=== PATIENT | female | born 1945 | race Caucasian/White ===

== ENCOUNTER 2016-10-24 14:47 | Emergency (ER) | payer MEDICARE, BC ==
[2016-10-24 14:55] VITALS: BP 151/75
[2016-10-24] MEDS ORDERED: Albuterol/Ipratropium 3.0-0.5 MG/3 ML Neb Soln NEB ONE (15:07)
[2016-10-24] MEDS ORDERED: Sodium Chloride 0.9% 10 ML Syringe FLUSH PRN (15:11)
[2016-10-24] MEDS ORDERED: methylPREDNISolone Sodium Succinate 125 MG/2 ML SDV IV ONE (15:12)
[2016-10-24] MEDS ORDERED: Sodium Chloride 0.9% 1,000 ML IV ONE (15:12)
[2016-10-24] MEDS ORDERED: Ketorolac 30 MG/ML SDV IVPUSH ONE (15:12)
[2016-10-24] MEDS ORDERED: Acetaminophen/HYDROcodone 325-5 MG Tab PO ONE (15:13)
[2016-10-24 15:44] LABS: CHLORIDE,CL 100 mmol/L (98-107); SODIUM,NA 138 mmol/L (136-145)
[2016-10-24] MEDS ORDERED: Take Home: Codeine/Promethazine 10-6.25 MG/5 ML Syrup 5 ML, 2 Cup Pack PO ONE (16:16)
[2016-10-24] MEDS ORDERED: Take Home: Albuterol 6.7 GM Inhaler, 1 Inhaler Pack INH ONE (16:16)
[2016-10-24] MEDS ORDERED: Take Home: Doxycycline 100 MG Tab, 4 Tab Pack PO ONE (16:16)
[2016-10-24] MEDS ORDERED: Take Home: Codeine/Promethazine 10-6.25 MG/5 ML Syrup 5 ML, 2 Cup Pack ONE (16:49)
--- NOTE | 2016-10-25 08:21 | ER ---
Date of Service: 10/24/2016 SUBJECTIVE: Ade presents to the emergency room with complaints of cough that she has been experiencing for a week. She states she has also been experiencing a runny nose, headache and body aches. She denies any fever or chills or vomiting. She has recently been experiencing some diarrhea as well. Denies any sick contacts. Again, the symptoms started approximately 1 week ago. PAST MEDICAL HISTORY: 1. Hypertension. 2. Dyslipidemia. 3. Incontinence. MEDICATIONS: 1. Oxybutynin. 2. Verapamil ER. 3. Simvastatin. 4. Potassium chloride. 5. Hydrochlorothiazide. ALLERGIES: NKDA. REVIEW OF SYSTEMS: HEENT: Positive for sinus congestion and rhinorrhea. Respiratory: Positive for cough, productive of yellowish sputum. Cardiac: Denies any substernal chest pain. No jaw, arm, neck, or back pain. GI: No nausea, vomiting, or diarrhea at this time. PHYSICAL EXAMINATION: General: This is a 70-year-old female patient. Vital Signs: Blood pressure is 151/75, pulse rate is 90, temperature is 36.9, respiratory rate is 20, O2 saturations 95%. Skin: Warm, pink, and dry. HEENT. Head is normocephalic, atraumatic. Mouth, oral mucosa is moist. No erythema or exudate noted to the patient's hypopharynx. Neck: Supple. No masses. There is no lymphadenopathy. Lungs: Diminished bilaterally with crackles and some rhonchi in the mid lung scruggs. Heart: Regular rate and rhythm. Abdomen: Soft, nontender. There is no hepatosplenomegaly or masses noted. Neurologic: She is alert and oriented. Answers all questions appropriately. DIAGNOSTIC IMAGING: PA and lateral chest x-ray was obtained. She did have evidence of some pneumonitis bilaterally near the hilum. No obvious infiltrate was noted. LABORATORY DATA: CBC was obtained and was noted to be within normal limits. Comprehensive metabolic panel was obtained and all noted to be within normal limits with the exception of a decreased potassium at 3.0. C-reactive protein was 10.8. Influenza A and B were obtained and were negative. ASSESSMENT: Pneumonitis. PLAN: The patient was started on doxycycline 100 mg twice daily for 10 days. She is also started on Phenergan with codeine 1-2 teaspoons p.o. q.6 hours as needed for cough. Also was started on prednisone 40 mg daily for the next 6 days. We will have her return to the emergency room if she develops any worsening cough or shortness of breath or other worrisome signs or symptoms. All questions were answered. MWK: 10/25/2016 04:29:30 MODL: 10/25/2016 04:49:08 /[id number]
== END 2016-10-24 16:46 | disposition home or self-care (01) ==
LOC: VM.ED 14:47
DX: J18.9 Pneumonia, unspecified organism (principal); I10 Essential (primary) hypertension; E78.5 Hyperlipidemia, unspecified
CPT/HCPCS: 36415; 71020; 80053; 85025; 86140; 87804; 94640; 96361; 96374; 96375; 99284; A9270; J1885; J2930; J7030; 99283-GF

== ENCOUNTER 2017-01-13 10:54 | Day surgery (SDC) | payer MEDICARE, BC ==
[~2017-01-13 10:54] MED LIST: Lactated Ringers 1,000 ML IV SCH
[2017-01-13] MEDS ORDERED: fentaNYL 100 MCG/2 ML SDV ONE (12:12)
[2017-01-13] MEDS ORDERED: Propofol 200 MG/20 ML SDV ONE ×4 (12:13→14:30)
[2017-01-13 14:38] VITALS: BP 132/72
--- NOTE | 2017-01-13 14:49 | OR ---
DATE OF SURGERY: 01/13/2017. REFERRING PROVIDER: Areli Cannon MD. PRE-OPERATIVE DIAGNOSES: Positive Fit stool card. The patient's last colonoscopy was 11/02/2012. She does have a history of some hyperplastic polyps. No known family history of colon cancer. POST-OPERATIVE DIAGNOSES: 1. A 4-mm polyp at 20 cm, removed with cold forceps. 2. Moderate diffuse diverticulosis throughout the colon, not acutely inflamed. 3. Mild hemorrhoids. PROCEDURE: Colonoscopy with polypectomy x1 using cold forceps. SURGEON: Rainer العراقي M.D. ANESTHESIA: Monitored anesthesia care. BOWEL PREP: Good. DESCRIPTION OF OPERATION: Joanna is a 71-year-old female. The patient was brought to the endoscopy suite after discussing risks and benefits of the procedure. Informed consent was obtained for conscious sedation and colonoscopy with or without biopsy and/or polypectomy. We also discussed possibility of missed lesions. Pre-procedure exam was unremarkable. IV, oxygen, and monitors were placed. The patient was placed in the left lateral decubitus position. Sedation was administered and a digital rectal exam performed and unremarkable. Colonoscope was passed into the rectum and slowly advanced all the way to the cecum. Cecum was viewed and photographed. The colonoscope was slowly withdrawn and the mucosa was closed observed in a direct circumferential manner. The colonoscope was slowly withdrawn. Mucosa was closely observed in a direct circumferential manner. The patient did have moderate diffuse diverticulosis throughout the entire length of the colon, most prominent in the sigmoid area. Otherwise, the ascending colon was unremarkable. Transverse colon was unremarkable. Descending colon was unremarkable. Sigmoid colon did reveal a 4- mm polyp at 20 cm, removed with cold forceps. Retroflexion was performed. Rectal mucosa was remarkable for some mild hemorrhoids. Scope was removed. The patient tolerated the procedure well. The patient was monitored until that baseline status. Discharge instructions were reviewed and the patient was discharged in good condition. COMPLICATIONS: None. TOTAL TIME: 18 minutes. ESTIMATED BLOOD LOSS: Less than 1 mL. RECOMMENDATIONS/FOLLOW-UP: We will await results of Path report to determine ideal followup interval. We will have the patient hold her aspirin for 3 days to limit any chance of bleeding. I would like to kindly thank Dr. Areli Cannon for this referral. DMB: 01/13/2017 14:00:17 MODL: 01/13/2017 14:35:26 /[id number]
== END 2017-01-13 14:59 | disposition home or self-care (01) ==
LOC: VM.SDS 10:54
PROVIDERS: ATTEND Family Medicine
DX: Z86.010 Personal history of colon polyps (principal)
CPT/HCPCS: 00810; 45380; J2704; J3010; J7120; 88305

== ENCOUNTER 2020-12-23 16:20 | Emergency (ER) | payer MEDICARE, BC ==
[2020-12-23 16:31] VITALS: BP 129/73; PULSE 102
[2020-12-23] MEDS ORDERED: Sodium Chloride 0.9% 10 ML Syringe FLUSH PRN (16:49)
[2020-12-23 17:22] LABS: CHLORIDE,CL 103 mmol/L (98-107); SODIUM,NA 141 mmol/L (136-145)
[2020-12-23] MEDS: Lactated Ringers 1,000 ML IV ONE (17:47)
[2020-12-23] MEDS: Ondansetron 4 MG/2 ML SDV IV ONE (17:47)
[2020-12-23] MEDS: Potassium Chloride 10% 20 MEQ/15 ML Soln 15 ML UD Cup PO ONE (17:48)
[2020-12-23] MEDS: Lactated Ringers 1,000 ML IV SCH (18:55)
[2020-12-23] MEDS: cefTRIAXone 1 GM Vial IVPUSH ONE (19:33)
--- NOTE | 2020-12-23 20:03 | EDM.PDOC ---
ED HPI GENERAL MEDICAL PROBLEM - General Chief Complaint: Gastrointestinal Problem Stated Complaint: NOT FEELING WELL Time Seen by Provider: 12/23/20 16:40 Source of Information: Reports: Patient History Limitations: Reports: No Limitations - History of Present Illness INITIAL COMMENTS - FREE TEXT/NARRATIVE: Patient comes emergency department today from home with complaints of nausea and vomiting diarrhea and urinary frequency. This patient for the past 2 to 3 days has had quite a few episodes of nausea vomiting and diarrhea. She has not been able to keep anything down at home. She is getting kind of weak and does not have much energy. She denies any fever or chills. No body aches malaise or fatigue. No chest pain no shortness of breath or difficulty breathing. No cough or congestion. She denies any abdominal pain other than when she is vomiting. She does complain of urinary frequency and dysuria. No hematuria. No flank pain. She has not been on antibiotics recently. She has not been exposed anyone ill. No loss of taste or smell. No cough congestion shortness of breath. She has received her Covid vaccine. Middle Epigastric Pain Score (Numeric/FACES): 1 - Related Data Allergies Allergy/AdvReac Type Severity Reaction Status Date / Time No Known Allergies Allergy Verified 12/23/20 16:34 Home Meds: Home Meds Albuterol [Ventolin HFA] 2 puff PO Q4H PRN 01/07/17 [History] Calcium Carb/Vitamin D3/Vit K1 [Calcium + Vit D & K Chew] 2 tab PO BID 01/07/17 [History] Cholecalciferol (Vitamin D3) [Vitamin D3] 2,000 unit PO DAILY 01/07/17 [History] Lactobacillus Acidophilus [Acidophilus Lactobacilli] 1 tab PO DAILY 01/07/17 [History] Nystatin [Nystatin Crm] 1 applic TOP TID 01/07/17 [History] Polyethylene Glycol 3350 [MiraLAX] 1 packet PO DAILY 01/07/17 [History] Potassium Chloride 1 tab PO DAILY 01/07/17 [History] Ranitidine HCl [Zantac] 150 mg PO DAILY 01/07/17 [History] Simvastatin [Zocor] 20 mg PO BEDTIME 01/07/17 [History] Verapamil HCl [Verapamil ER Pm] 100 mg PO BEDTIME 01/07/17 [History] hydroCHLOROthiazide [Hydrochlorothiazide] 25 g PO DAILY 01/07/17 [History] Aspirin [Halfprin] 1 tab PO DAILY 01/13/17 [History] Ondansetron [Zofran ODT] 4 mg PO Q6H PRN #12 tab.dis 12/23/20 [Rx] cephALEXin [Cephalexin] 500 mg PO QID #20 capsule 12/23/20 [Rx] Past Medical History HEENT History: Reports: Allergic Rhinitis, Other (See Below) Other HEENT History: deviated septum Cardiovascular History: Reports: High Cholesterol, Hypertension Respiratory History: Reports: Pneumonia, Recurrent Gastrointestinal History: Reports: Chronic Constipation, Colon Polyp, Diverticulosis, GERD, Other (See Below) Other Gastrointestinal History: RUQ abd. pain Genitourinary History: Reports: None FURNITURE RESTORER History: Reports: , Other (See Below) Other FURNITURE RESTORER History: intramural leiomyoma of uterus Musculoskeletal History: Reports: Arthritis Neurological History: Psychiatric History: Reports: None Endocrine/Metabolic History: Reports: Osteopenia Hematologic History: Reports: None Immunologic History: Reports: None Oncologic (Cancer) History: Reports: None Dermatologic History: Reports: None - Past Surgical History Head Surgeries/Procedures: Reports: None Cardiovascular Surgical History: Reports: Varicose GI Surgical History: Reports: Colonoscopy Female Surgical History: Reports: Tubal Ligation Endocrine Surgical History: Reports: None Neurological Surgical History: Reports: None Musculoskeletal Surgical History: Reports: None Oncologic Surgical History: Reports: Biopsy of Breast Social & Family History - Tobacco Use Tobacco Use Status *Q: Unknown Ever Used Tobacco ED ROS GENERAL - Review of Systems Review Of Systems: Comprehensive ROS is negative, except as noted in HPI. ED EXAM, GI/ABD - Physical Exam Exam: See Below Exam Limited By: No Limitations General Appearance: Alert, WD/WN, No Apparent Distress Ears: Normal External Exam Nose: Normal Inspection Throat/Mouth: Normal Inspection (Normal except for her oral mucosa is quite dry.) Head: Atraumatic, Normocephalic Neck: Normal Inspection, Supple, Non-Tender, Full Range of Motion Respiratory/Chest: No Respiratory Distress, Lungs Clear, Normal Breath Sounds, Chest Non-Tender Cardiovascular: Normal Peripheral Pulses, Regular Rate, Rhythm, Tachycardia GI/Abdominal Exam: Normal Bowel Sounds, Soft, Non-Tender, No Organomegaly, No Distention, No Abnormal Bruit, No Mass (Female) Exam: Deferred Rectal (Female) Exam: Deferred Back Exam: Normal Inspection, Full Range of Motion. No: CVA Tenderness (L), CVA Tenderness (R) Extremities: Normal Inspection, Normal Range of Motion, Non-Tender, No Pedal Edema, Normal Capillary Refill Neurological: Alert, Oriented, CN II-XII Intact, Normal Cognition, Normal Gait, No Motor/Sensory Deficits Psychiatric: Normal Affect, Normal Mood Skin Exam: Warm, Dry, Intact, Normal Color, No Rash Lymphatic: No Adenopathy Course - Vital Signs Last Recorded V/S: Last Vital Signs Temp 97.6 F 12/23/20 16:20 Pulse 102 H 12/23/20 16:20 Resp 20 12/23/20 16:20 BP 129/73 12/23/20 16:20 Pulse Ox 97 12/23/20 16:20 - Orders/Labs/Meds Labs: Laboratory Tests 12/23/20 12/23/20 12/23/20 Range/Units 17:00 17:00 19:02 WBC 7.6 (4.0-10.0) x10^3/uL RBC 4.99 (4.00-5.50) x10^6/uL Hgb 16.1 H (12.0-16.0) g/dL Hct 45.0 (33.0-47.0) % MCV 90.2 (78.0-93.0) fL MCH 32.3 H (26.0-32.0) pg MCHC 35.8 (32.0-36.0) g/dL RDW Coeff of Flaca 12.7 (10.0-15.0) % Plt Count 203 (130-400) x10^3/uL Neut % (Auto) 91.9 H (50.0-80.0) % Lymph % (Auto) 4.6 L (25.0-50.0) % [place] % (Auto) 3.3 (2.0-11.0) % Eos % (Auto) 0.1 (0.0-4.0) % Baso % (Auto) 0.1 L (0.2-1.2) % Sodium 141 (136-145) mmol/L Potassium 3.0 L (3.5-5.1) mmol/L Chloride 103 (98-107) mmol/L Carbon Dioxide 24 (21-32) mmol/L Anion Gap 17.0 H (5-15) mmol/L BUN 17 (7-18) mg/dL Creatinine 1.0 (0.55-1.02) mg/dL Est Cr Clr Drug Dosing TNP Estimated GFR (MDRD) 54 Glucose 118 H (70-99) mg/dL Calcium 8.8 (8.5-10.1) mg/dL Corrected Calcium 8.9 (8.5-10.1) mg/dL Magnesium 1.8 (1.8-2.4) mg/dL Total Bilirubin 0.9 (0.2-1.0) mg/dL AST 21 (15-37) U/L ALT 29 (14-59) U/L Alkaline Phosphatase 93 (46-116) U/L C-Reactive Protein 2.1 H (<=0.9) mg/dL Total Protein 7.9 (6.4-8.2) g/dL Albumin 3.9 (3.4-5.0) g/dL Globulin 4.0 Albumin/Globulin Ratio 0.98 Urine Color Yellow (YELLOW) Urine Appearance Slightly cloudy H (CLEAR) Urine pH 7.0 (5.0-8.0) Ur Specific Herald 1.020 Urine Protein Trace H (NEGATIVE) mg/dL Urine Glucose (UA) Negative (NEGATIVE) mg/dL Urine Ketones 80 H (NEGATIVE) mg/dL Urine Occult Blood Trace-lysed H (NEGATIVE) Urine Nitrite Negative (NEGATIVE) Urine Bilirubin Small H (NEGATIVE) Urine Urobilinogen 1.0 (0.2) EU/dL Ur Leukocyte Esterase Trace H (NEGATIVE) Urine RBC 0-5 (NOT SEEN) /HPF Urine WBC 5-10 H (NOT SEEN) /HPF Ur Squamous Epith Cells Occasional H (NOT SEEN) /HPF Urine Bacteria Occasional H (NOT SEEN) /HPF Urine Mucus Few H (NOT SEEN) /LPF Meds: Medications Discontinued Medications Generic Name Dose Route Start Last Admin Trade Name Freq PRN Reason Stop Dose Admin Ceftriaxone Sodium 1 gm 12/23/20 19:17 12/23/20 19:33 Ceftriaxone 1 Gm Vial IVPUSH 12/23/20 19:18 1 gm STAT ONE Administration Lactated Ringer's 1,000 mls @ 999 mls/hr 12/23/20 16:50 12/23/20 17:47 Ringers, Lactated IV 12/23/20 17:50 999 mls/hr ONETIME ONE Administration Lactated Ringer's 1,000 mls @ 500 mls/hr 12/23/20 18:45 12/23/20 18:55 Ringers, Lactated IV 500 mls/hr ASDIRECTED MIESHA Administration Ondansetron HCl 4 mg 12/23/20 17:25 12/23/20 17:47 Ondansetron 4 Mg/2 Ml Sdv IV 12/23/20 17:26 4 mg ONETIME ONE Administration Ondansetron HCl 1 packet 12/23/20 19:59 12/23/20 20:36 Take Home: Ondansetron 4 Mg Tab.Dis, 2 Tab Pack PO 12/23/20 20:00 1 packet ONETIME ONE Administration Potassium Chloride 40 meq 12/23/20 17:26 12/23/20 17:48 Potassium Chloride 10% 20 Meq/15 Ml Soln 15 Ml Ud Cup PO 12/23/20 17:27 40 meq ONETIME ONE Administration Sodium Chloride 10 ml 12/23/20 16:49 Sodium Chloride 0.9% 10 Ml Syringe FLUSH ASDIRECTED PRN Keep Vein Open - Re-Assessments/Exams Free Text/Narrative Re-Assessment/Exam: IV was established labs are drawn. Patient was given 4 mg of Zofran IV push. Liter of LR bolus. CBC with a normal WBC at 7.6, hemoglobin 16.1, platelet 203. CMP with a sodium 141, potassium 3.0, magnesium normal at 1.8 creatinine normal at 1.0. BUN 17. Normal liver enzymes. C-reactive protein minimally elevated at 2.1. Urinalysis trace proteins ketones small amount of bilirubin trace leukocytes 5- 10 WBCs. Urine culture pending. Occasional bacteria. Patient was given a dose of Rocephin IV piggyback. After the above therapy the patient feels quite a bit better. She was able to urinate some more. She feels like she has more energy and feels quite a bit better. We will treat her for urinary tract infection at this time as well as dehydration and hypokalemia. She was given 40 mEq of oral potassium in the emergency department. We will increase her potassium as well at home for the management of her hypokalemia. This could be somewhat related to her being on hydrochlorothiazide without being on lisinopril. Discharge directions as below are explained to the patient she was comfortable this plan and her questions were answered Departure - Departure Time of Disposition: 20:00 Disposition: Home, Self-Care 01 Clinical Impression: Hypokalemia, Dehydration UTI (urinary tract infection) Qualifiers: Urinary tract infection type: site unspecified Hematuria presence: without hematuria Qualified Code(s): N39.0 - Urinary tract infection, site not specified - Discharge Information Prescriptions: cephALEXin [Cephalexin] 500 mg PO QID #20 capsule Ondansetron [Zofran ODT] 4 mg PO Q6H PRN #12 tab.dis PRN Reason: Nausea/Vomiting Instructions: Nausea and Vomiting, Adult, [id number], Urinary Tract Infection, Adult, [id number], Dehydration, Elderly, [id number] Referrals: Areli Cannon MD [Primary Care Provider] - Forms: ED Department Discharge Additional Instructions: Zofran 1 tablet every 6 hrs as needed for nausea and vomiting. Starter pack from the ED and RX sent to [facility]. Drink plenty of fluids over the next few days especially electrolyte containing materials such as gatorade and or powerade. Try to eat a banana a day. Cephalexin 1 tablet three times a day for the next 5 days RX sent to [facility]. Potassium. 2 tablet daily use your home medications at this time. Recheck your potassium in the clinic next week. Return to the ED if new or worsening symptoms. Sepsis Event Note (ED) - Evaluation Sepsis Screening Result: No Definite Risk
[2020-12-23] MEDS: Take Home: Ondansetron 4 MG Tab.DIS, 2 Tab Pack PO ONE (20:36)
== END 2020-12-23 20:36 | disposition home or self-care (01) ==
LOC: VM.ED 16:20
DX: N39.0 Urinary tract infection, site not specified (principal); E86.0 Dehydration; E87.6 Hypokalemia; E78.00 Pure hypercholesterolemia, unspecified; I10 Essential (primary) hypertension; K21.9 Gastro-esophageal reflux disease without esophagitis; M19.90 Unspecified osteoarthritis, unspecified site; Z79.82 Long term (current) use of aspirin; Z79.899 Other long term (current) drug therapy
CPT/HCPCS: 36415; 80053; 81001; 83735; 85025; 86140; 87086; 96361; 96374; 96375; 99284; A9270; J0696; J2405; J7120

== ENCOUNTER 2022-04-01 09:03 | Day surgery (SDC) | payer MEDICARE, BC ==
[~2022-04-01 09:03] MED LIST changes: +Propofol 200 MG/20 ML SDV ONE; +fentaNYL 100 MCG/2 ML SDV ONE
[2022-04-01] MEDS ORDERED: Propofol 200 MG/20 ML SDV ONE (11:02)
[2022-04-01 12:24] VITALS: BP 132/79; PULSE 55
== END 2022-04-01 12:50 | disposition home or self-care (01) ==
LOC: VM.SDS 09:03
PROVIDERS: ATTEND Family Medicine
DX: Z12.11 Encounter for screening for malignant neoplasm of colon (principal); D12.0 Benign neoplasm of cecum; D12.5 Benign neoplasm of sigmoid colon; D12.3 Benign neoplasm of transverse colon; K59.09 Other constipation; K57.30 Diverticulosis of large intestine without perforation or abscess without bleeding; K64.9 Unspecified hemorrhoids; I10 Essential (primary) hypertension; E66.9 Obesity, unspecified; K21.9 Gastro-esophageal reflux disease without esophagitis; E78.00 Pure hypercholesterolemia, unspecified; M85.89 Other specified disorders of bone density and structure, multiple sites; G25.81 Restless legs syndrome; Z86.010 Personal history of colon polyps; Z79.899 Other long term (current) drug therapy; Z98.890 Other specified postprocedural states; Z68.35 Body mass index [BMI] 35.0-35.9, adult
CPT/HCPCS: 00811; 45380; 45385; J2704; J3010; J7120; 88305

== ENCOUNTER 2023-11-03 10:49 | Day surgery (SDC) | payer MEDICARE, BC ==
[2023-11-03] MEDS: Lactated Ringers 1,000 ML IV SCH (11:04)
[2023-11-03] MEDS ORDERED: fentaNYL 100 MCG/2 ML SDV ONE (11:47)
[2023-11-03] MEDS ORDERED: Propofol 200 MG/20 ML SDV ONE (11:47)
[2023-11-03] MEDS ORDERED: Lidocaine 4% 5 ML Amp ONE (11:47)
[2023-11-03] MEDS ORDERED: Midazolam 1 MG/ML 2 ML SDV ONE (11:47)
[2023-11-03 12:54] VITALS: BP 130/69; PULSE 56
== END 2023-11-03 13:20 | disposition home or self-care (01) ==
LOC: VM.SDS 10:49
PROVIDERS: ATTEND Family Medicine
DX: K29.70 Gastritis, unspecified, without bleeding (principal); K31.89 Other diseases of stomach and duodenum; K44.9 Diaphragmatic hernia without obstruction or gangrene; I10 Essential (primary) hypertension; K21.9 Gastro-esophageal reflux disease without esophagitis; K59.09 Other constipation; K57.30 Diverticulosis of large intestine without perforation or abscess without bleeding; E66.9 Obesity, unspecified; Z68.36 Body mass index [BMI] 36.0-36.9, adult; Z79.82 Long term (current) use of aspirin; Z79.899 Other long term (current) drug therapy
CPT/HCPCS: 00731; 99100; J2250; J2704; J3010; J3490; J7120